=== PATIENT | female | born 1970 | race African-American/Black ===

== ENCOUNTER 2017-07-09 10:09 | Emergency (ER) | payer OTHER ==
[2017-07-09 10:33] VITALS: BP 179/99; PULSE 79; TEMP 98.8; BMI 34.9
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
[2017-07-09] MEDS ORDERED: ACETAMINOPHEN 325 MG TABLET (FP) PO ONE (12:00)
[2017-07-09] MEDS ORDERED: IBUPROFEN 400 MG TABLET (FP) PO ONE (12:00)
[2017-07-09] MEDS ORDERED: ACETAMINOPHEN 325 MG TABLET (FP) ONE (12:11)
[2017-07-09] MEDS ORDERED: IBUPROFEN 600 MG TABLET (FP) PO ONE (12:11)
--- NOTE | 2017-07-10 11:56 | EKG ---
Test Reason : Blood Pressure : / mmHG Vent. Rate : 062 BPM Atrial Rate : 062 BPM P-R Int : 134 ms QRS Dur : 088 ms QT Int : 454 ms P-R-T Axes : 041 043 054 degrees QTc Int : 460 ms NORMAL SINUS RHYTHM MINIMAL VOLTAGE CRITERIA FOR LVH, MAY BE NORMAL VARIANT BORDERLINE ECG WHEN COMPARED WITH ECG OF 14-NOV-2015 09:01, VENT. RATE HAS DECREASED BY 34 BPM NONSPECIFIC T WAVE ABNORMALITY NO LONGER EVIDENT IN LATERAL LEADS Confirmed by JEB KRAUSE, MALIKA ([id number]) on 07/10/2017 11:55:47 AM Referred By: Confirmed By:MALIKA RUSS MD
== END 2017-07-09 14:15 | disposition home or self-care (01) ==
LOC: JER 10:09
DX: S29.8XXA Other specified injuries of thorax, initial encounter (principal); V77.6XXA Passenger on bus injured in collision with fixed or stationary object in traffic accident, initial encounter; Y92.488 Other paved roadways as the place of occurrence of the external cause; Y93.89 Activity, other specified; Y99.0 Civilian activity done for income or pay
CPT/HCPCS: 71020-TC; 71101-TC-RT; 93005; 93010; 99281-25

== ENCOUNTER 2018-11-02 10:52 | Emergency (ER) | payer OTHER ==
[2018-11-02 11:03] VITALS: BP 152/85; PULSE 87; TEMP 98.5; BMI 41.0
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
[2018-11-02] MEDS ORDERED: ACETAMINOPHEN 325 MG TABLET (FP) PO ONE (11:22)
[2018-11-02] MEDS ORDERED: ONDANSETRON 4 MG/2 ML VIAL IVPUSH ONE (11:22)
[2018-11-02] MEDS ORDERED: SODIUM CHLORIDE 1,000 ML IV STA (11:22)
[2018-11-02] MEDS ORDERED: ACETAMINOPHEN 1000 MG/100 ML VIAL (NON FORMULARY) IVPB ONE (11:24)
[2018-11-02] MEDS ORDERED: ONDANSETRON 4 MG/2 ML VIAL ONE (11:45)
[2018-11-02] MEDS ORDERED: ACETAMINOPHEN INJECTION 100 ML IVPB ONE (11:49)
[2018-11-02 11:52] LABS: EOS % 3.1 % (0-4.5); HEMATOCRIT 38.3 % (32.4-45.2); HEMOGLOBIN 13.3 GM/dL (10.7-15.3); LYMPH % 43.6 % (8-40); MCH 29.7 pg (25.7-33.7); MCHC 34.8 g/dl (32.0-36.0); MEAN CELL VOLUME 85.2 fl (80-96); MEAN PLT VOLUME 8.2 fl (7.5-11.1); MONO % 7.5 % (3.8-10.2); NEUT % 44.8 % (42.8-82.8); PLATELET COUNT 247 K/MM3 (134-434); RBC 4.49 M/mm3 (3.60-5.2); RDW 14.5 % (11.6-15.6); WHITE BLOOD COUNT 7.6 K/mm3 (4.0-10.0)
[2018-11-02 12:19] LABS: ALBUMIN 3.6 g/dl (3.4-5.0); ALK PHOS 97 U/L (45-117); ANION GAP 8 MMOL/L (8-16); BILIRUBIN,TOTAL 0.5 mg/dL (0.2-1); BLOOD UREA NITROGEN 14 mg/dL (7-18); CALCIUM 8.7 mg/dL (8.5-10.1); CHLORIDE 108 mmol/L (98-107); CO2 25 mmol/L (21-32); CREATININE 0.9 mg/dL (0.55-1.3); GLUCOSE,RANDOM 105 mg/dL (74-106); LIPASE 225 U/L (73-393); POTASSIUM 3.8 mmol/L (3.5-5.1); SGOT/AST 29 U/L (15-37); SGPT/ALT 47 U/L (13-61); SODIUM 142 mmol/L (136-145); TOT PROT 7.5 g/dl (6.4-8.2)
== END 2018-11-02 14:03 | disposition home or self-care (01) ==
LOC: JER 10:52
PROC: 3E033GC Introduction of Other Therapeutic Substance into Peripheral Vein, Percutaneous Approach (ICD-10-PCS; principal; 2018-11-02)
PROC: 3E033NZ Introduction of Analgesics, Hypnotics, Sedatives into Peripheral Vein, Percutaneous Approach (ICD-10-PCS; 2018-11-02)
DX: K81.1 Chronic cholecystitis (principal); R10.11 Right upper quadrant pain; I10 Essential (primary) hypertension; E78.5 Hyperlipidemia, unspecified; Z90.710 Acquired absence of both cervix and uterus; Z86.61 Personal history of infections of the central nervous system
CPT/HCPCS: 36415; 76705-TC; 80053; 83690; 85025; 96374; 96375; 99282-25; J0131; J7030

== ENCOUNTER 2022-08-13 06:05 | Emergency (ER) | payer OTHER ==
[2022-08-13 06:13] VITALS: BP 129/87; PULSE 86; RESP 18; TEMP 98.8; BMI 42.7
== END 2022-08-13 08:15 | disposition left against medical advice (07) ==
LOC: JER 06:05
DX: R07.9 Chest pain, unspecified (principal)
CPT/HCPCS: 82962; 93005; 93010; 99284-25

== ENCOUNTER 2023-07-25 14:37 | Emergency (ER) | payer OTHER ==
[2023-07-25 14:57] VITALS: BP 122/69; PULSE 84; RESP 19; TEMP 99; BMI 47.0
[2023-07-25 16:20] LABS: HEMATOCRIT 42.3 % (32.4-45.2); HEMOGLOBIN 13.7 G/dL (10.7-15.3); MCH 28.1 pg (25.7-33.7); MCHC 32.3 g/dl (32.0-36.0); MEAN CELL VOLUME 86.8 fl (80-96); MEAN PLT VOLUME 8.8 fl (7.5-11.1); RBC 4.87 10^6/uL (3.60-5.2); WHITE BLOOD COUNT 7.8 10^3/uL (4.0-10.8)
[2023-07-25 16:32] LABS: PLATELET ESTIMATE ADEQUATE
[2023-07-25 16:42] LABS: ALBUMIN 3.9 g/dl (3.4-5.0); BILIRUBIN,TOTAL 0.5 mg/dl (0.2-1); CALCIUM 8.9 mg/dl (8.5-10.1); CREATININE 0.9 mg/dl (0.6-1.3); TOT PROT 6.9 g/dl (6.4-8.2)
[2023-07-25 16:48] LABS: POTASSIUM 4.8 mmol/L (3.5-5.1)
== END 2023-07-25 20:07 | disposition home or self-care (01) ==
LOC: FER 14:37
DX: K92.2 Gastrointestinal hemorrhage, unspecified (principal)
CPT/HCPCS: 36415; 74174-TC; 80053; 82272; 85025; 99285-25; Q9967

== ENCOUNTER 2023-09-25 04:39 | Day surgery (SDC) | payer OTHER ==
[2023-09-23 13:39] VITALS: BMI 45.4
[2023-09-25 08:44] VITALS: TEMP 97.1
[2023-09-25 08:56] VITALS: RESP 20
[2023-09-25 09:15] VITALS: BP 122/75; PULSE 77
== END 2023-09-25 09:16 | disposition home or self-care (01) ==
LOC: JASU-ENDO 04:39
PROVIDERS: ATTEND Internal Medicine Gastroenterology
PROC: 0DBP8ZX Excision of Rectum, Via Natural or Artificial Opening Endoscopic, Diagnostic (ICD-10-PCS; 2023-09-25)
PROC: 0DBH8ZX Excision of Cecum, Via Natural or Artificial Opening Endoscopic, Diagnostic (ICD-10-PCS; principal; 2023-09-25 08:00)
DX: Z12.11 Encounter for screening for malignant neoplasm of colon (principal); D12.0 Benign neoplasm of cecum; D12.8 Benign neoplasm of rectum; K57.30 Diverticulosis of large intestine without perforation or abscess without bleeding; K64.8 Other hemorrhoids; I10 Essential (primary) hypertension
CPT/HCPCS: 82962